=== PATIENT | female | born 1950 | race Caucasian/White ===

== ENCOUNTER → 2017-03-30 | Outpatient (CLI) | payer OTHER ==
[~2017-03-30] VITALS: Ht 154.9 cm; Wt 52.7 kg
[~2017-03-30] MED LIST: ANTIVERT25 MG PO; ASPIRIN E.C.81 M1 PO; AUGMENTIN875 MG PO; BUPROPION HCL100 M1 PO; BUPROPION HCL75 MG PO; CIPROFLOXACIN500 M1 PO; CLONAZEPAM0.5 MG PO; COZAAR50 MG PO; Calan SR,Covera HS,I PO; DICLOFENAC POTA50 MG PO; DOXYCYCLINE HY100 MG PO; FENOFIBRATE54 M1 PO; FORTAMET500 MG PO; GEODON40 MG PO; GEODON60 MG PO; GLUCOPHAGE500 MG PO; LATUDA120 MG PO; LATUDA40 MG PO; LATUDA60 MG PO; LEVAQUIN500 MG PO; LISINOPRIL40 MG PO; Levaquin PO; NAPROSYN500 MG PO; NAPROXEN500 M2 PO; NORVASC5 MG PO; PAROXETINE HCL20 MG PO; PAXIL20 MG PO; PAXIL30 MG PO; PAXIL40 MG PO; PLAVIX75 MG PO; PRAVACHOL40 MG PO; PRINIVIL40 MG PO; Paxil PO; SAPHRIS5 MG SL; SIMVASTATIN40 M1 PO; TRAZODONE HCL100 MG PO; VENTOLIN HFA18 GM IH; VERAPAMIL HCL240 M1 PO; VERAPAMIL HCL240 M2 PO; VERAPAMIL HCL240 MG PO; Vitamin B-12 PO; ZESTRIL,PRINIVI40 M1 PO; ZIPRASIDONE HCL40 MG PO; ZOFRAN4 MG PO
[2017-03-30 09:43] LABS: POINT-OF-CARE METER ID UU13113694
[2017-03-30 10:03] LABS: CHLORIDE 105 mEq/L (99-109); POTASSIUM 3.7 mEq/L (3.7-5.4); SODIUM 140 mEq/L (136-147)
[2017-03-30 10:05] LABS: GLUCOSE 100 mg/dL (70-99)
[2017-03-30 10:06] LABS: ANION GAP 10 MEQ/L (2-14)
[2017-03-30 10:09] LABS: GFR ESTIMATE (CALCULATED) 59 mL/min/; UREA NITROGEN (BUN) 14 mg/dL (9-23)
[2017-03-30 11:55] LABS: POINT-OF-CARE METER ID UU13113819; POINT-OF-CARE USER ID 515036437
== END | disposition home or self-care (01) ==
LOC: AMB 09:06
PROVIDERS: Internal Medicine Gastroenterology
DX: D12.0 Benign neoplasm of cecum (principal); D12.2 Benign neoplasm of ascending colon; K57.90 Diverticulosis of intestine, part unspecified, without perforation or abscess without bleeding; I10 Essential (primary) hypertension; E11.9 Type 2 diabetes mellitus without complications; E78.5 Hyperlipidemia, unspecified; R00.1 Bradycardia, unspecified; Z87.891 Personal history of nicotine dependence; Z79.899 Other long term (current) drug therapy; J45.909 Unspecified asthma, uncomplicated; Z86.73 Personal history of transient ischemic attack (TIA), and cerebral infarction without residual deficits
CPT/HCPCS: 80048; 82948; 88305; 93005; J2250; J3010

== ENCOUNTER 2017-04-14 17:00 | Emergency (ER) | payer OTHER ==
[~2017-04-14] VITALS: Ht 152.4 cm; Wt 53.2 kg
[2017-04-14 18:02] LABS: HEMATOCRIT 40.9 % (36.0-46.0); MCH 31.5 PG (29.0-34.0); MCHC 33.5 G/DL (30.0-36.0); MEAN PLAT.VOLUME 11.2 uM^3 (9.5-12.4); PLATELET COUNT 226 K/uL (156-360); RBC DIS.WIDTH-CV 13.2 % (11.8-14.6); RBC DIS.WIDTH-SD 45.3 % (39-53); RED BLOOD COUNT 4.35 M/uL (3.80-5.20); WHITE BLOOD COUNT 6.3 K/uL (4.1-10.2)
[2017-04-14 18:11] LABS: CHLORIDE 103 mEq/L (99-109); POTASSIUM 3.8 mEq/L (3.7-5.4); SODIUM 138 mEq/L (136-147)
[2017-04-14 18:13] LABS: GLUCOSE 83 mg/dL (70-99)
[2017-04-14 18:14] LABS: ANION GAP 9 MEQ/L (2-14)
[2017-04-14 18:16] LABS: GFR ESTIMATE (CALCULATED) 53 mL/min/; SERUM ETHYL ALCOHOL < 10 mg/dL
[2017-04-14 18:17] LABS: UREA NITROGEN (BUN) 15 mg/dL (9-23)
[2017-04-14 18:21] LABS: AMPHETAMINE NEGATIVE (500 ng/mL); BARBITURATES NEGATIVE (200 ng/mL); BENZODIAZEPINES NEGATIVE (150 ng/mL); COCAINE NEGATIVE (150 ng/mL); INTERNAL CONTROLS VALID? YES; METHADONE NEGATIVE (200 ng/mL); METHAMPHETAMINE NEGATIVE (500 ng/mL); OPIATES (MORPHINE) NEGATIVE (100 ng/mL); OXYCODONE NEGATIVE (100 ng/mL); PHENCYCLIDINE NEGATIVE (25 ng/mL); PROPOXYPHENE NEGATIVE (300 ng/mL); THC CANNABINOIDS NEGATIVE (50 ng/mL); TRICYCLIC ANTIDEPRESSANTS NEGATIVE (300 ng/mL)
[2017-04-15 03:50] VITALS: BP 150/83
== END 2017-04-15 03:51 ==
LOC: EME 17:00
DX: F33.3 Major depressive disorder, recurrent, severe with psychotic symptoms (principal); S50.812A Abrasion of left forearm, initial encounter; X78.1XXA Intentional self-harm by knife, initial encounter; J45.909 Unspecified asthma, uncomplicated; I10 Essential (primary) hypertension; Z86.73 Personal history of transient ischemic attack (TIA), and cerebral infarction without residual deficits; Z87.891 Personal history of nicotine dependence
CPT/HCPCS: 80048; 81003; 85027; 87086; 90837; 93005; 99281; 99285; G0480

== ENCOUNTER 2017-10-26 10:46 | Emergency (ER) | payer OTHER ==
[~2017-10-26] VITALS: Ht 154.9 cm; Wt 61.3 kg
[~2017-10-26 10:46] MED LIST changes: -BUPROPION HCL100 M1 PO; +COZAAR100 MG PO; -COZAAR50 MG PO; +WELLBUTRIN XL150 MG PO
[2017-10-26 12:39] LABS: HEMATOCRIT 37.1 % (36.0-46.0); HEMOGLOBIN 12.7 G/DL (11.9-15.5); MCH 32.9 PG (29.0-34.0); MCHC 34.2 G/DL (30.0-36.0); MCV 96.1 FL (83-99); PLATELET COUNT 242 K/uL (156-360); RBC DIS.WIDTH-CV 12.5 % (11.8-14.6); RED BLOOD COUNT 3.86 M/uL (3.80-5.20); WHITE BLOOD COUNT 7.3 K/uL (4.1-10.2)
[2017-10-26 12:49] LABS: CHLORIDE 102 mEq/L (99-109); SODIUM 137 mEq/L (136-147)
[2017-10-26 12:50] LABS: GLUCOSE 106 mg/dL (70-99)
[2017-10-26 12:54] LABS: CREATININE 0.8 mg/dL (0.6-1.3); GFR ESTIMATE (CALCULATED) > 59 mL/min/
[2017-10-26 12:55] LABS: UREA NITROGEN (BUN) 12 mg/dL (9-23)
[2017-10-26] MEDS ORDERED: COLACE100 MG PO (13:30)
[2017-10-26 13:53] VITALS: BP 172/86
== END 2017-10-26 13:54 | disposition home or self-care (01) ==
LOC: EME 10:46
DX: K62.3 Rectal prolapse (principal); J45.909 Unspecified asthma, uncomplicated; Z87.891 Personal history of nicotine dependence; Z86.73 Personal history of transient ischemic attack (TIA), and cerebral infarction without residual deficits; Z88.8 Allergy status to other drugs, medicaments and biological substances
CPT/HCPCS: 80048; 85027; 86850; 86900; 86901; 99281; 99284; J3010; J7030

== ENCOUNTER 2017-10-28 15:32 | Emergency (ER) | payer OTHER ==
[~2017-10-28] VITALS: Ht 154.9 cm; Wt 59.7 kg
[~2017-10-28 15:32] MED LIST changes: +COLACE100 MG PO
[2017-10-28 17:56] LABS: HEMATOCRIT 34.9 % (36.0-46.0); HEMOGLOBIN 11.9 G/DL (11.9-15.5); MCH 32.5 PG (29.0-34.0); MCHC 34.1 G/DL (30.0-36.0); MCV 95.4 FL (83-99); PLATELET COUNT 230 K/uL (156-360); RBC DIS.WIDTH-CV 12.5 % (11.8-14.6); RED BLOOD COUNT 3.66 M/uL (3.80-5.20); WHITE BLOOD COUNT 11.1 K/uL (4.1-10.2)
[2017-10-28 18:04] LABS: ALBUMIN 3.9 g/dL (3.2-4.8); CHLORIDE 99 mEq/L (99-109); POTASSIUM 3.9 mEq/L (3.7-5.4); SODIUM 137 mEq/L (136-147)
[2017-10-28 18:07] LABS: GLUCOSE 107 mg/dL (70-99); TOTAL PROTEIN 6.3 g/dL (6.4-8.3)
[2017-10-28 18:08] LABS: TOTAL BILIRUBIN 0.3 mg/dL (0.0-1.0)
[2017-10-28 18:10] LABS: ALKALINE PHOSPHATASE 42 IU/L (3-129); GFR ESTIMATE (CALCULATED) 59 mL/min/
[2017-10-28 18:11] LABS: UREA NITROGEN (BUN) 13 mg/dL (9-23)
[2017-10-28 18:12] LABS: AST (GOT) 25 IU/L (2-34)
[2017-10-28 18:13] LABS: ALT (GPT) 20 IU/L (3-49)
[2017-10-28] MEDS ORDERED: ABILIFY15 MG PO (19:19)
[2017-10-28] MEDS ORDERED: FLUOXETINE HCL40 MG PO (19:19)
[2017-10-28 21:56] VITALS: BP 134/63
== END 2017-10-28 21:56 | disposition home or self-care (01) ==
LOC: EME 15:32
PROVIDERS: Emergency Medicine
DX: K62.3 Rectal prolapse (principal); D64.9 Anemia, unspecified; D72.829 Elevated white blood cell count, unspecified; K62.5 Hemorrhage of anus and rectum; R11.0 Nausea; I10 Essential (primary) hypertension; J45.909 Unspecified asthma, uncomplicated; Z87.891 Personal history of nicotine dependence
CPT/HCPCS: 80053; 85027; 99281; 99284

== ENCOUNTER → 2017-11-15 | Outpatient (CLI) | payer MEDICARE, OTHER ==
[~2017-11-15] MED LIST changes: +ABILIFY15 MG PO; +ATROVENT 00.5 MG/2.5 IH; +FLUOXETINE HCL40 MG PO; +IMODIUM A-D2 M2 PO
== END | disposition home or self-care (01) ==
LOC: CDC 10:54
DX: Z01.810 Encounter for preprocedural cardiovascular examination (principal); K62.3 Rectal prolapse; I49.3 Ventricular premature depolarization
CPT/HCPCS: 93000

== ENCOUNTER 2017-11-17 21:35 | Inpatient (IN) | payer OTHER ==
[~2017-11-17] VITALS: Ht 152.4 cm; Wt 61.0 kg
[2017-11-18 06:00] VITALS: BP 132/88
[2017-11-18 16:40] VITALS: BP 128/77
[2017-11-18 19:21] VITALS: BP 127/54
[2017-11-19] VITALS (7 sets, daily range): BP systolic 127–168; BP diastolic 56–86
[2017-11-19 07:02] LABS: BASOPHIL (%) 0.3 % (0-1); EOSINOPHIL (%) 2.2 % (0-5); EOSINOPHIL COUNT 0.1 K/uL (0-0.3); HEMATOCRIT 26.2 % (36.0-46.0); IMMATURE GRANULOCYTE (%) 0.2 % (0.0-0.7); LYMPHOCYTE (%) 15.8 % (15-42); LYMPHOCYTE COUNT 0.9 K/uL (1.0-2.8); MCH 31.5 PG (29.0-34.0); MCHC 32.1 G/DL (30.0-36.0); MCV 98.1 FL (83-99); MONOCYTE (%) 8.6 % (3-12); MONOCYTE COUNT 0.5 K/uL (0-0.8); NEUTROPHIL (%) 72.9 % (45-76); NEUTROPHIL COUNT 4.2 K/uL (1.8-6.4); RBC DIS.WIDTH-CV 12.6 % (11.8-14.6); WHITE BLOOD COUNT 5.8 K/uL (4.1-10.2)
[2017-11-19 07:03] LABS: CHLORIDE 105 MEQ/L (99-109); CREATININE 0.7 MG/DL (0.6-1.3); GFR ESTIMATE (CALCULATED) > 59 mL/min/; GLUCOSE 103 mg/dL (70-99); POTASSIUM 3.7 MEQ/L (3.7-5.4); SODIUM 137 MEQ/L (136-147); UREA NITROGEN (BUN) 9 mg/dL (9-23)
[2017-11-19 07:04] LABS: HEMOGLOBIN 8.4 G/DL (11.9-15.5); PLATELET COUNT 182 K/uL (156-360); RED BLOOD COUNT 2.67 M/uL (3.80-5.20)
[2017-11-20 03:46] VITALS: BP 168/80
[2017-11-20 04:26] VITALS: BP 168/80
[2017-11-20 06:51] LABS: BASOPHIL (%) 0.6 % (0-1); EOSINOPHIL (%) 2.2 % (0-5); EOSINOPHIL COUNT 0.1 K/uL (0-0.3); HEMATOCRIT 27.4 % (36.0-46.0); HEMOGLOBIN 8.9 G/DL (11.9-15.5); IMMATURE GRANULOCYTE (%) 0.4 % (0.0-0.7); LYMPHOCYTE (%) 19.7 % (15-42); MCH 31.7 PG (29.0-34.0); MCHC 32.5 G/DL (30.0-36.0); MCV 97.5 FL (83-99); MONOCYTE COUNT 0.5 K/uL (0-0.8); NEUTROPHIL (%) 67.1 % (45-76); NEUTROPHIL COUNT 3.4 K/uL (1.8-6.4); PLATELET COUNT 193 K/uL (156-360); RBC DIS.WIDTH-CV 12.4 % (11.8-14.6); RBC DIS.WIDTH-SD 44.7 % (39-53); RED BLOOD COUNT 2.81 M/uL (3.80-5.20); WHITE BLOOD COUNT 5.1 K/uL (4.1-10.2)
[2017-11-20 07:06] LABS: CHLORIDE 104 MEQ/L (99-109); CREATININE 0.6 MG/DL (0.6-1.3); GFR ESTIMATE (CALCULATED) > 59 mL/min/; GLUCOSE 90 mg/dL (70-99); SODIUM 138 MEQ/L (136-147); UREA NITROGEN (BUN) 8 mg/dL (9-23)
[2017-11-20 07:48] VITALS: BP 140/70
[2017-11-20 11:12] VITALS: BP 110/59
[2017-11-20 16:00] VITALS: BP 168/68
[2017-11-21 00:27] VITALS: BP 159/86
[2017-11-21 04:00] VITALS: BP 136/82
[2017-11-21 07:03] LABS: BASOPHIL (%) 0.7 % (0-1); EOSINOPHIL (%) 4.8 % (0-5); EOSINOPHIL COUNT 0.3 K/uL (0-0.3); HEMATOCRIT 30.8 % (36.0-46.0); IMMATURE GRANULOCYTE (%) 0.3 % (0.0-0.7); LYMPHOCYTE (%) 24.6 % (15-42); LYMPHOCYTE COUNT 1.4 K/uL (1.0-2.8); MCH 31.6 PG (29.0-34.0); MCHC 32.5 G/DL (30.0-36.0); MCV 97.5 FL (83-99); MONOCYTE (%) 10.8 % (3-12); MONOCYTE COUNT 0.6 K/uL (0-0.8); NEUTROPHIL (%) 58.8 % (45-76); NEUTROPHIL COUNT 3.4 K/uL (1.8-6.4); PLATELET COUNT 231 K/uL (156-360); RBC DIS.WIDTH-CV 12.4 % (11.8-14.6); RBC DIS.WIDTH-SD 44.6 % (39-53); RED BLOOD COUNT 3.16 M/uL (3.80-5.20); WHITE BLOOD COUNT 5.8 K/uL (4.1-10.2)
[2017-11-21 07:16] LABS: CHLORIDE 104 MEQ/L (99-109); CREATININE 0.6 MG/DL (0.6-1.3); GFR ESTIMATE (CALCULATED) > 59 mL/min/; GLUCOSE 83 mg/dL (70-99); SODIUM 139 MEQ/L (136-147); UREA NITROGEN (BUN) 11 mg/dL (9-23)
[2017-11-21 08:24] VITALS: BP 165/92
[2017-11-21 11:59] VITALS: BP 132/66
[2017-11-21 16:13] VITALS: BP 158/91
[2017-11-21 20:05] VITALS: BP 162/104
[2017-11-22] VITALS: BP 175/93
[2017-11-22 07:05] VITALS: BP 131/97
[2017-11-22 11:09] LABS: C DIFF TOXIN NEGATIVE (NEGATIVE)
[2017-11-22 11:33] VITALS: BP 145/76
[2017-11-22 15:25] VITALS: BP 159/89
[2017-11-22 19:30] VITALS: BP 164/72
[2017-11-23 00:35] VITALS: BP 147/74
[2017-11-23 06:49] VITALS: BP 172/84
[2017-11-23] MEDS ORDERED: HYDROCODON-ACE1 EAC7 PO (09:00)
[2017-11-23] MEDS ORDERED: METAMUCIL PACK3.4 GM PO (09:00)
[2017-11-23] MEDS ORDERED: COLACE100 MG PO (09:09)
== END 2017-11-23 15:03 | disposition home health service (06) | DRG 331 ==
LOC: 2SOUTH → CANRESERV 21:35 → ENRESERV 21:35 → 2SOUTH 11-18 05:23 → 5EAST 11-18 05:23 → 2SOUTH 11-18 09:33 → ENRESERV 11-18 13:51 → 5EAST 11-18 16:29 → ENPENDDIS 11-23 → EDPENDDISTM 11-23 15:00 → 5EAST 11-23 15:03
PROVIDERS: Physician Assistant; Student in an Organized Health Care Education/Training Program
DX: K62.3 Rectal prolapse (principal); N73.6 Female pelvic peritoneal adhesions (postinfective); D25.9 Leiomyoma of uterus, unspecified; K40.90 Unilateral inguinal hernia, without obstruction or gangrene, not specified as recurrent
CPT/HCPCS: 36415; 80048; 80053; 81003; 82948; 85025; 86850; 86900; 86901; 87493; 93000; 94002; 94640; 94640 76; 94760; 94799; 97530 GP; 99202; C1781; J0131; J1100; J1170; J1650; J1885; J2405; J2710; J3010; J7120; S0074

== ENCOUNTER 2018-02-07 12:22 | Emergency (ER) | payer OTHER ==
[~2018-02-07] VITALS: Ht 152.4 cm; Wt 65.0 kg
[~2018-02-07 12:22] MED LIST changes: +HYDROCODON-ACE1 EAC7 PO; +METAMUCIL PACK3.4 GM PO
[2018-02-07 12:29] VITALS: BP 150/113
[2018-02-07 12:52] LABS: HEMATOCRIT 34.6 % (36.0-46.0); HEMOGLOBIN 11.1 G/DL (11.9-15.5); MCH 30.5 PG (29.0-34.0); MCHC 32.1 G/DL (30.0-36.0); MCV 95.1 FL (83-99); PLATELET COUNT 252 K/uL (156-360); RBC DIS.WIDTH-SD 52.2 % (39-53); RED BLOOD COUNT 3.64 M/uL (3.80-5.20); WHITE BLOOD COUNT 6.2 K/uL (4.1-10.2)
[2018-02-07 13:03] LABS: CHLORIDE 106 mEq/L (99-109); POTASSIUM 4.1 mEq/L (3.7-5.4); SODIUM 142 mEq/L (136-147)
[2018-02-07 13:05] LABS: GLUCOSE 83 mg/dL (70-99)
[2018-02-07 13:09] LABS: CREATININE 0.9 mg/dL (0.6-1.3); GFR ESTIMATE (CALCULATED) > 59 mL/min/; UREA NITROGEN (BUN) 20 mg/dL (9-23)
[2018-02-07 13:15] LABS: TROP-I INTERPRETATION NEGATIVE; TROPONIN-I 0.01 ng/mL (0.0-0.30)
== END 2018-02-07 14:58 | disposition left against medical advice (07) ==
LOC: EME 12:22
DX: R00.2 Palpitations (principal); Z53.21 Procedure and treatment not carried out due to patient leaving prior to being seen by health care provider
CPT/HCPCS: 80048; 84484; 85027; 93005

== ENCOUNTER 2018-03-01 10:20 | Inpatient (IN) | payer OTHER ==
[~2018-03-01] VITALS: Ht 152.4 cm; Wt 71.5 kg
[2018-03-01 11:11] LABS: BASOPHIL (%) 0.4 % (0-1); EOSINOPHIL (%) 1.5 % (0-5); EOSINOPHIL COUNT 0.1 K/uL (0-0.3); HEMATOCRIT 31.2 % (36.0-46.0); HEMOGLOBIN 9.9 G/DL (11.9-15.5); IMMATURE GRANULOCYTE (%) 0.4 % (0.0-0.7); LYMPHOCYTE (%) 16.3 % (15-42); LYMPHOCYTE COUNT 1.4 K/uL (1.0-2.8); MCH 29.4 PG (29.0-34.0); MCHC 31.7 G/DL (30.0-36.0); MCV 92.6 FL (83-99); MONOCYTE (%) 9.9 % (3-12); MONOCYTE COUNT 0.8 K/uL (0-0.8); NEUTROPHIL (%) 71.5 % (45-76); NEUTROPHIL COUNT 5.9 K/uL (1.8-6.4); PLATELET COUNT 244 K/uL (156-360); RBC DIS.WIDTH-CV 14.8 % (11.8-14.6); RBC DIS.WIDTH-SD 50.4 % (39-53); RED BLOOD COUNT 3.37 M/uL (3.80-5.20); WHITE BLOOD COUNT 8.3 K/uL (4.1-10.2)
[2018-03-01 11:16] LABS: INTER. NORMALIZED RATIO 1.3
[2018-03-01 11:19] LABS: PTT 25.6 SEC (25-37)
[2018-03-01 11:21] LABS: CHLORIDE 103 mEq/L (99-109); POTASSIUM 4.1 mEq/L (3.7-5.4); SODIUM 139 mEq/L (136-147)
[2018-03-01 11:22] LABS: GLUCOSE 90 mg/dL (70-99)
[2018-03-01 11:26] LABS: CREATININE 0.9 mg/dL (0.6-1.3); GFR ESTIMATE (CALCULATED) > 59 mL/min/
[2018-03-01 11:27] LABS: UREA NITROGEN (BUN) 23 mg/dL (9-23)
[2018-03-01 11:31] LABS: TROP-I INTERPRETATION NEGATIVE; TROPONIN-I 0.03 ng/mL (0.0-0.30)
[2018-03-01] MEDS ORDERED: COLACE100 MG PO (12:28)
[2018-03-01] MEDS ORDERED: IMODIUM A-D2 M2 PO (12:29)
[2018-03-01] MEDS ORDERED: CITRUCEL907 G1 PO (12:29)
[2018-03-01] MEDS ORDERED: PRAVACHOL20 MG PO (12:29)
[2018-03-01] MEDS ORDERED: PROAIR HFA8.5 GM IH (12:30)
[2018-03-01] MEDS ORDERED: ARTIFICIAL TEAR1510 BOTH EYES (12:30)
[2018-03-01 15:07] VITALS: BP 123/94
[2018-03-01 17:55] LABS: TROP-I INTERPRETATION NEGATIVE; TROPONIN-I 0.04 ng/mL (0.0-0.30)
[2018-03-01 20:37] VITALS: BP 130/74
[2018-03-01 23:55] LABS: TROP-I INTERPRETATION NEGATIVE; TROPONIN-I 0.02 ng/mL (0.0-0.30)
[2018-03-02 00:39] VITALS: BP 112/59
[2018-03-02 04:25] VITALS: BP 123/97
[2018-03-02 05:20] LABS: HEMATOCRIT 31.9 % (36.0-46.0); HEMOGLOBIN 9.7 G/DL (11.9-15.5); MCH 28.3 PG (29.0-34.0); MCHC 30.4 G/DL (30.0-36.0); PLATELET COUNT 240 K/uL (156-360); RBC DIS.WIDTH-CV 14.7 % (11.8-14.6); RBC DIS.WIDTH-SD 50.4 % (39-53); RED BLOOD COUNT 3.43 M/uL (3.80-5.20); WHITE BLOOD COUNT 5.9 K/uL (4.1-10.2)
[2018-03-02 05:42] LABS: CHLORIDE 99 MEQ/L (99-109); GFR ESTIMATE (CALCULATED) 59 mL/min/; GLUCOSE 151 mg/dL (70-99); POTASSIUM 4.3 MEQ/L (3.7-5.4); SODIUM 139 MEQ/L (136-147); UREA NITROGEN (BUN) 27 mg/dL (9-23)
[2018-03-02 08:50] VITALS: BP 110/72
[2018-03-02 10:52] LABS: APPEARANCE CLEAR ((CLEAR)); BILIRUBIN NEGATIVE; BLOOD SMALL; COLOR YELLOW ((YELLOW)); GLUCOSE (STRIP) NEGATIVE; KETONES NEGATIVE; LEUKOCYTES SMALL; NITRITE NEGATIVE; PROTEIN (STRIP) NEGATIVE; SPECIFIC GRAVITY 1.011 (1.000-1.030); UROBILINOGEN 0.2 MG/DL (0.2-1.0)
[2018-03-02 11:13] LABS: BACTERIA RARE /HPF; EPITHELIAL CELLS RARE /HPF; HYALINE CASTS 0-5 /LPF; MUCUS TRACE /LPF; RED BLOOD CELLS 0-5 /HPF (0-5); UCUL ADDED? NO; WHITE BLOOD CELLS 0-5 /HPF (0-5)
[2018-03-02 11:32] VITALS: BP 114/66
[2018-03-02 16:31] VITALS: BP 109/65
[2018-03-02 20:11] VITALS: BP 123/75
[2018-03-03 00:47] VITALS: BP 129/63
[2018-03-03 04:49] VITALS: BP 113/67
[2018-03-03 07:10] LABS: BASOPHIL (%) 0.1 % (0-1); EOSINOPHIL (%) 0 % (0-5); HEMATOCRIT 34.3 % (36.0-46.0); HEMOGLOBIN 10.5 G/DL (11.9-15.5); IMMATURE GRANULOCYTE (%) 0.6 % (0.0-0.7); LYMPHOCYTE (%) 7.6 % (15-42); LYMPHOCYTE COUNT 0.9 K/uL (1.0-2.8); MCH 28.9 PG (29.0-34.0); MCHC 30.6 G/DL (30.0-36.0); MCV 94.5 FL (83-99); MONOCYTE COUNT 0.4 K/uL (0-0.8); NEUTROPHIL (%) 88.7 % (45-76); NEUTROPHIL COUNT 10.2 K/uL (1.8-6.4); RBC DIS.WIDTH-CV 14.7 % (11.8-14.6); RBC DIS.WIDTH-SD 51.3 % (39-53); RED BLOOD COUNT 3.63 M/uL (3.80-5.20); WHITE BLOOD COUNT 11.5 K/uL (4.1-10.2)
[2018-03-03 07:37] LABS: PLATELET COUNT 316 K/uL (156-360)
[2018-03-03 07:40] LABS: CHLORIDE 96 MEQ/L (99-109); CREATININE 1.1 MG/DL (0.6-1.3); GFR ESTIMATE (CALCULATED) 52 mL/min/; GLUCOSE 158 mg/dL (70-99); POTASSIUM 4.6 MEQ/L (3.7-5.4); SODIUM 136 MEQ/L (136-147); UREA NITROGEN (BUN) 34 mg/dL (9-23)
[2018-03-03 08:17] VITALS: BP 119/80
[2018-03-03 12:09] VITALS: BP 112/65
[2018-03-03 12:39] LABS: HEMATOCRIT 32.3 % (36.0-46.0); HEMOGLOBIN 10.1 G/DL (11.9-15.5); MCV 93.4 FL (83-99)
[2018-03-03 16:10] VITALS: BP 115/66
[2018-03-03 19:38] VITALS: BP 120/80
[2018-03-03 19:58] LABS: HEMATOCRIT 30.9 % (36.0-46.0); HEMOGLOBIN 9.6 G/DL (11.9-15.5); MCV 94.2 FL (83-99)
[2018-03-04] VITALS (20 sets, daily range): BP systolic 98–158; BP diastolic 61–105
[2018-03-04 02:35] LABS: HEMATOCRIT 33.7 % (36.0-46.0); HEMOGLOBIN 10.5 G/DL (11.9-15.5); MCH 29.2 PG (29.0-34.0); MCHC 31.2 G/DL (30.0-36.0); MCV 93.6 FL (83-99); PLATELET COUNT 333 K/uL (156-360); RBC DIS.WIDTH-CV 14.6 % (11.8-14.6); RBC DIS.WIDTH-SD 50.2 % (39-53); WHITE BLOOD COUNT 12.4 K/uL (4.1-10.2)
[2018-03-04 02:36] LABS: BASE EXCESS 7.9 mEq/L (-3 to +3); CARBOXY HGB 1.6 % (0-5); COMMENTS - BLOOD GASES C+A+; DEVICE NIV; FI02 40 %; METHEMOGLOBIN 1.5 % (0-1.5); MODE SPONT; PCO2 62 mm Hg (35-45); PEEP 5 CM/H20; PO2 148 mm Hg (80-100); PRES. SUPPORT 15 CM/H2O; SITE RR; TOTAL RESP RATE 12 resp/min; pH 7.36 (7.35-7.45)
[2018-03-04 02:49] LABS: ALBUMIN 4.2 g/dL (3.2-4.8); CHLORIDE 94 mEq/L (99-109); POTASSIUM 4.6 mEq/L (3.7-5.4); SODIUM 138 mEq/L (136-147)
[2018-03-04 02:52] LABS: GLUCOSE 179 mg/dL (70-99); TOTAL PROTEIN 6.5 g/dL (6.4-8.3)
[2018-03-04 02:54] LABS: TOTAL BILIRUBIN 0.3 mg/dL (0.0-1.0)
[2018-03-04 02:55] LABS: ALKALINE PHOSPHATASE 55 IU/L (3-129); CREATININE 1.4 mg/dL (0.6-1.3); GFR ESTIMATE (CALCULATED) 40 mL/min/
[2018-03-04 02:56] LABS: UREA NITROGEN (BUN) 41 mg/dL (9-23)
[2018-03-04 02:57] LABS: AST (GOT) 35 IU/L (2-34)
[2018-03-04 02:57] LABS: TROP-I INTERPRETATION NEGATIVE; TROPONIN-I 0.02 ng/mL (0.0-0.30)
[2018-03-04 02:58] LABS: ALT (GPT) 37 IU/L (3-49)
[2018-03-04 05:26] LABS: HEMATOCRIT 32.1 % (36.0-46.0); HEMOGLOBIN 9.9 G/DL (11.9-15.5); MCH 28.8 PG (29.0-34.0); MCHC 30.8 G/DL (30.0-36.0); MCV 93.3 FL (83-99); PLATELET COUNT 281 K/uL (156-360); RBC DIS.WIDTH-CV 14.6 % (11.8-14.6); RED BLOOD COUNT 3.44 M/uL (3.80-5.20); WHITE BLOOD COUNT 10.6 K/uL (4.1-10.2)
[2018-03-04 05:52] LABS: CHLORIDE 97 MEQ/L (99-109); CREATININE 1.2 MG/DL (0.6-1.3); GFR ESTIMATE (CALCULATED) 47 mL/min/; GLUCOSE 136 mg/dL (70-99); POTASSIUM 4.4 MEQ/L (3.7-5.4); SODIUM 139 MEQ/L (136-147); UREA NITROGEN (BUN) 41 mg/dL (9-23)
[2018-03-04 08:31] LABS: HEMATOCRIT 32.6 % (36.0-46.0); HEMOGLOBIN 9.9 G/DL (11.9-15.5); MCV 93.9 FL (83-99)
[2018-03-04 12:05] LABS: BASE EXCESS 14.2 mEq/L (-3 to +3); BICARBONATE 40.3 mEq/L (22-26); CARBOXY HGB 1.8 % (0-5); METHEMOGLOBIN 1.1 % (0-1.5); PCO2 58 mm Hg (35-45); pH 7.45 (7.35-7.45)
[2018-03-04 12:06] LABS: PO2 72 mm Hg (80-100)
[2018-03-04 12:07] LABS: COMMENTS - BLOOD GASES A+C+; DEVICE VENT; FI02 30 %; MODE SPONT; PEEP 5 CM/H20; PRES. SUPPORT 15 CM/H2O; SITE RR; TOTAL RESP RATE 10 resp/min
[2018-03-05] VITALS (12 sets, daily range): BP systolic 97–141; BP diastolic 59–99
[2018-03-06 00:05] VITALS: BP 113/74
[2018-03-06 05:06] VITALS: BP 117/77
[2018-03-06 08:04] VITALS: BP 118/90
[2018-03-06 09:29] LABS: HEMATOCRIT 33.4 % (36.0-46.0); HEMOGLOBIN 10.5 G/DL (11.9-15.5); MCH 29.3 PG (29.0-34.0); MCHC 31.4 G/DL (30.0-36.0); MCV 93.3 FL (83-99); NRBC (%) 0.2 /100 WBC (0-0); PLATELET COUNT 301 K/uL (156-360); RBC DIS.WIDTH-CV 14.1 % (11.8-14.6); RED BLOOD COUNT 3.58 M/uL (3.80-5.20); WHITE BLOOD COUNT 10.7 K/uL (4.1-10.2)
[2018-03-06 09:51] LABS: CHLORIDE 91 MEQ/L (99-109); CREATININE 1.2 MG/DL (0.6-1.3); GFR ESTIMATE (CALCULATED) 47 mL/min/; GLUCOSE 146 mg/dL (70-99); POTASSIUM 3.9 MEQ/L (3.7-5.4); SODIUM 139 MEQ/L (136-147); UREA NITROGEN (BUN) 38 mg/dL (9-23)
[2018-03-06 10:12] LABS: CARBON DIOXIDE (BICARBONATE) > 40.0 MEQ/L (20-31)
[2018-03-06 11:21] VITALS: BP 120/78
[2018-03-06 15:55] VITALS: BP 104/65
[2018-03-06 19:30] VITALS: BP 107/77
[2018-03-07 00:05] VITALS: BP 144/86
[2018-03-07 02:51] VITALS: BP 115/75
[2018-03-07 05:29] LABS: BASOPHIL (%) 0.1 % (0-1); EOSINOPHIL (%) 0 % (0-5); HEMATOCRIT 34.1 % (36.0-46.0); HEMOGLOBIN 10.5 G/DL (11.9-15.5); IMMATURE GRANULOCYTE (%) 0.6 % (0.0-0.7); LYMPHOCYTE (%) 7.6 % (15-42); LYMPHOCYTE COUNT 0.8 K/uL (1.0-2.8); MCHC 30.8 G/DL (30.0-36.0); MCV 94.2 FL (83-99); MONOCYTE (%) 5.1 % (3-12); MONOCYTE COUNT 0.6 K/uL (0-0.8); NEUTROPHIL (%) 86.6 % (45-76); NEUTROPHIL COUNT 9.3 K/uL (1.8-6.4); PLATELET COUNT 311 K/uL (156-360); RBC DIS.WIDTH-CV 14.2 % (11.8-14.6); RBC DIS.WIDTH-SD 49.5 % (39-53); RED BLOOD COUNT 3.62 M/uL (3.80-5.20); WHITE BLOOD COUNT 10.7 K/uL (4.1-10.2)
[2018-03-07 06:23] LABS: CHLORIDE 94 MEQ/L (99-109); CREATININE 1.2 MG/DL (0.6-1.3); GFR ESTIMATE (CALCULATED) 47 mL/min/; GLUCOSE 159 mg/dL (70-99); POTASSIUM 3.8 MEQ/L (3.7-5.4); SODIUM 138 MEQ/L (136-147); UREA NITROGEN (BUN) 42 mg/dL (9-23)
[2018-03-07 11:11] VITALS: BP 118/62
[2018-03-07 11:43] VITALS: BP 102/62
[2018-03-07 16:10] VITALS: BP 128/70
[2018-03-07 19:45] VITALS: BP 104/54
[2018-03-08] VITALS: BP 152/89
[2018-03-08 03:00] VITALS: BP 118/73
[2018-03-08 05:56] LABS: BASOPHIL (%) 0.2 % (0-1); EOSINOPHIL (%) 0.1 % (0-5); HEMATOCRIT 35.4 % (36.0-46.0); HEMOGLOBIN 10.7 G/DL (11.9-15.5); LYMPHOCYTE (%) 8.9 % (15-42); MCH 28.7 PG (29.0-34.0); MCHC 30.2 G/DL (30.0-36.0); MCV 94.9 FL (83-99); MONOCYTE (%) 5.1 % (3-12); MONOCYTE COUNT 0.6 K/uL (0-0.8); NEUTROPHIL (%) 84.7 % (45-76); NEUTROPHIL COUNT 9.7 K/uL (1.8-6.4); PLATELET COUNT 285 K/uL (156-360); RBC DIS.WIDTH-CV 14.4 % (11.8-14.6); RED BLOOD COUNT 3.73 M/uL (3.80-5.20); WHITE BLOOD COUNT 11.5 K/uL (4.1-10.2)
[2018-03-08 06:07] LABS: CHLORIDE 99 MEQ/L (99-109); CREATININE 1.2 MG/DL (0.6-1.3); GFR ESTIMATE (CALCULATED) 47 mL/min/; GLUCOSE 149 mg/dL (70-99); POTASSIUM 4.4 MEQ/L (3.7-5.4); SODIUM 140 MEQ/L (136-147); UREA NITROGEN (BUN) 42 mg/dL (9-23)
[2018-03-08 07:42] VITALS: BP 128/75
[2018-03-08] MEDS ORDERED: PRAVASTATIN SOD40 MG PO (11:51)
[2018-03-08] MEDS ORDERED: ELIQUIS5 MG PO (11:51)
[2018-03-08] MEDS ORDERED: MEDROL DOSEPAK4 MG PO (11:52)
[2018-03-08] MEDS ORDERED: ANALPRAM HC 2.5%4 GM PR (11:52)
[2018-03-08] MEDS ORDERED: FUROSEMIDE20 MG PO (11:52)
[2018-03-08] MEDS ORDERED: LOSARTAN POTASS25 MG PO (11:52)
[2018-03-08 11:53] VITALS: BP 122/82
[2018-03-08] MEDS ORDERED: TOPROL XL50 MG PO (11:54)
== END 2018-03-08 14:31 | DRG 190 ==
LOC: EME 10:20 → EDOF 12:22 → 4WEST 12:22 → 4EAST 12:22 → ENRESERV 12:25 → 4EAST 15:03 → ENRESERV 03-02 11:16 → 2EAST 03-02 16:09 → ENRESERV 03-04 02:06 → 4WEST 03-04 02:10 → ENRESERV 03-05 22:55 → 4EAST 03-05 23:51 → ENPENDDIS 03-08 → 4EAST 03-08 14:31
PROVIDERS: Emergency Medicine; Hospitalist; Internal Medicine; Internal Medicine Cardiovascular Disease; Internal Medicine Critical Care Medicine
DX: J44.1 Chronic obstructive pulmonary disease with (acute) exacerbation (principal); J96.01 Acute respiratory failure with hypoxia; I50.41 Acute combined systolic (congestive) and diastolic (congestive) heart failure; I11.0 Hypertensive heart disease with heart failure; I48.91 Unspecified atrial fibrillation; Z86.73 Personal history of transient ischemic attack (TIA), and cerebral infarction without residual deficits; K21.9 Gastro-esophageal reflux disease without esophagitis; E78.5 Hyperlipidemia, unspecified; I08.1 Rheumatic disorders of both mitral and tricuspid valves; E11.9 Type 2 diabetes mellitus without complications; I42.9 Cardiomyopathy, unspecified; J45.901 Unspecified asthma with (acute) exacerbation; F10.10 Alcohol abuse, uncomplicated; K64.9 Unspecified hemorrhoids; K62.5 Hemorrhage of anus and rectum; F31.9 Bipolar disorder, unspecified; F41.9 Anxiety disorder, unspecified; E87.2 Acidosis; E87.3 Alkalosis; R15.9 Full incontinence of feces; R32 Unspecified urinary incontinence
CPT/HCPCS: 36600; 71045; 80048; 80053; 81003; 82803; 82948; 83880; 84484; 85014; 85018; 85025; 85027; 85379; 85610; 85730; 87641; 93005; 93306; 94002; 94640; 94640 76; 94760; 94799; 97530 GO; 97530 GP; 99202; 99281; 99284; J1940; J2920

== ENCOUNTER 2018-04-07 10:17 | Day surgery (SDC) | payer OTHER ==
[~2018-04-07] VITALS: Ht 152.4 cm; Wt 64.0 kg
[~2018-04-07 10:17] MED LIST changes: +ACETAMINOPHEN325 M1 PO; +ANALPRAM HC 2.5%4 GM PR; +ARTIFICIAL TEAR1510 BOTH EYES; +CITRUCEL907 G1 PO; +DUONEB 2.5-0.5 M3 ML AEROSOL; +ELIQUIS5 MG PO; +FUROSEMIDE20 MG PO; +FUROSEMIDE40 MG PO; +LOSARTAN POTASS25 MG PO; +MEDROL DOSEPAK4 MG PO; +PRAVACHOL20 MG PO; +PRAVASTATIN SOD40 MG PO; +PROAIR HFA8.5 GM IH; +TOPROL XL50 MG PO
== END 2018-04-07 12:49 | disposition home or self-care (01) ==
LOC: CATH 10:17
PROVIDERS: Internal Medicine Cardiovascular Disease
PROC: 5A2204Z Restoration of Cardiac Rhythm, Single (ICD-10-PCS; principal; 2018-04-07)
DX: I48.1 Persistent atrial fibrillation (principal); I11.0 Hypertensive heart disease with heart failure; I50.22 Chronic systolic (congestive) heart failure; E78.5 Hyperlipidemia, unspecified; I34.0 Nonrheumatic mitral (valve) insufficiency; Z79.01 Long term (current) use of anticoagulants; Z86.73 Personal history of transient ischemic attack (TIA), and cerebral infarction without residual deficits; F39 Unspecified mood [affective] disorder; Z99.81 Dependence on supplemental oxygen
CPT/HCPCS: 82948; 93005

== ENCOUNTER 2018-05-12 09:08 | Day surgery (SDC) | payer OTHER ==
[~2018-05-12] VITALS: Ht 152.4 cm; Wt 67.2 kg
[~2018-05-12 09:08] MED LIST changes: +ANALPRAM HC 2.530 GM PR; +CORDARONE200 MG PO; +COZAAR25 MG PO; +LASIX20 MG PO; +LOPRESSOR25 MG PO
== END 2018-05-12 11:50 | disposition home or self-care (01) ==
LOC: CATH 09:08
PROC: 5A2204Z Restoration of Cardiac Rhythm, Single (ICD-10-PCS; principal; 2018-05-12)
DX: I48.1 Persistent atrial fibrillation (principal); I11.0 Hypertensive heart disease with heart failure; I50.22 Chronic systolic (congestive) heart failure; E78.5 Hyperlipidemia, unspecified; I34.0 Nonrheumatic mitral (valve) insufficiency; F41.3 Other mixed anxiety disorders; Z86.73 Personal history of transient ischemic attack (TIA), and cerebral infarction without residual deficits; Z79.01 Long term (current) use of anticoagulants
CPT/HCPCS: 93005